=== PATIENT | female | born 1975 | race African-American/Black ===

== ENCOUNTER 2017-07-21 16:22 | Outpatient (CLI) | payer BC | END 2017-07-21 16:23 | disposition home or self-care (01) | LOC: BICMAMMO 16:22 | PROVIDERS: ATTEND Obstetrics & Gynecology | DX: Z12.31 Encounter for screening mammogram for malignant neoplasm of breast (principal); Z80.3 Family history of malignant neoplasm of breast | CPT/HCPCS: 77063; 77067 ==

== ENCOUNTER 2022-07-13 13:58 | Outpatient (CLI) | payer BC | END 2022-07-13 13:59 | disposition home or self-care (01) | LOC: BICCT 13:58 | PROVIDERS: ATTEND Family Medicine | DX: R42 Dizziness and giddiness (principal) | CPT/HCPCS: 70450 ==

== ENCOUNTER 2023-12-20 20:34 | Observation (INO) | payer BC ==
[2023-12-20 21:13] LABS: #Basophils Less than 0.03 10x3/uL (0.0-0.2); %Basophils 0.3 % (0.0-1.0); %Eosinophils 1.9 % (0.0-10.0); %Lymphocytes 44.5 % (21.0-51.0); %Monocytes 7.3 % (0.0-10.0); %Neutrophils 45.9 % (42.0-75.0); Hematocrit 43.4 % (36.0-47.0); Hemoglobin 14.4 g/dL (12.0-16.0); Mean Corpuscular HGB CONC 33.2 g/dL (32.0-36.0); Mean Corpuscular Hemoglobin 28.3 pg (27.0-31.0); Mean Corpuscular Volume 85.3 fL (78.0-98.0); Mean Platelet Volume 10.2 fL (7.4-10.4); Platelet Count 301 10x3/uL (130-400); RBC Distribution Width 13.1 % (11.5-14.5); Red Blood Cell (RBC) Count 5.09 mill/uL (4.20-5.40)
[2023-12-20 21:18] LABS: Bacteria/HPF None Seen HPF (None Seen); Bilirubin Negative (Negative); Blood, Urine Negative (Negative); CAUTI Indications for Culture Alt mental st,lethar; Clarity Clear (Clear); Glucose, Urine (Dipstick) 70 mg/dL (Negative); Ketone, Urine Negative (Negative); Leukocyte Negative Leu/uL (Negative); Nitrite Negative (Negative); Protein, Urine (Dipstick) Negative (Neg-Trace); RBC/HPF 0-3 HPF (0-3); Specific Gravity, Urine 1.022 (1.002-1.036); Squamous Epithelial 0-3 HPF (0-3); WBC/HPF None Seen HPF (0-3); pH, Urine 6.5 (5.0-9.0)
[2023-12-20 21:21] LABS: Urine Culture Reflex No No
[2023-12-20 21:28] LABS: ALT (SGPT) 16 U/L (8-55); AST (SGOT) 13 U/L (5-34); Albumin 3.9 g/dL (3.5-5.0); Alkaline Phosphatase 100 U/L (40-110); Anion Gap 18 mmol/L (10-20); BUN (Urea Nitrogen) 11 mg/dL (7.0-18.7); Bilirubin, Total 0.2 mg/dL (0.2-1.2); Calc. Creatinine Clearance 0 mL/min (70-130); Calcium 9.9 mg/dL (7.8-10.44); Carbon Dioxide 25 mmol/L (22-29); Chloride 101 mmol/L (98-107); Estimated GFR 67; Globulin 3.9 g/dL (2.4-3.5); Glucose 169 mg/dL (70-105); Potassium 3.5 mmol/L (3.5-5.1); Protein, Total 7.8 g/dL (6.0-8.3); Sodium 140 mmol/L (136-145)
[2023-12-20 21:35] LABS: Troponin I Less than 0.010 ng/mL (< 0.028)
[2023-12-20] MEDS ORDERED: Nitroglycerin 2% Ointment 1 INCH/1 GM Packet ONE (22:02)
[2023-12-20] MEDS ORDERED: Aspirin Chewable 81 MG TAB ONE (22:03)
[2023-12-20] MEDS ORDERED: Ondansetron PF 4 MG/2 ML Vial IVP PRN (22:31)
[2023-12-20] MEDS ORDERED: Acetaminophen 650 MG Suppository PR PRN (22:31)
[2023-12-20] MEDS ORDERED: Ondansetron ODT 4 MG TAB PO PRN (22:31)
[2023-12-20] MEDS ORDERED: Losartan 25 MG TAB PO SCH (23:00)
[2023-12-20 23:52] VITALS: BMI 31.2
[2023-12-21] MEDS ORDERED: Glucagon 1 MG/ML KIT IM PRN (00:19)
[2023-12-21] MEDS ORDERED: Dextrose 50% Abboject 50 ML SYRINGE SLOW IVP PRN (00:19)
[2023-12-21] MEDS ORDERED: Insulin Regular, Human 100 UNIT/ML 10 ML VIAL SC PRN ×2 (00:19)
[2023-12-21] MEDS ORDERED: Dextrose 5% in Water 1,000 ML IV PRN (00:19)
[2023-12-21 01:23] LABS: Troponin I Less than 0.010 ng/mL (< 0.028)
[2023-12-21 03:16] LABS: #Basophils 0.03 10x3/uL (0.0-0.2); %Basophils 0.5 % (0.0-1.0); %Eosinophils 1.6 % (0.0-10.0); %Lymphocytes 44.3 % (21.0-51.0); %Monocytes 7.1 % (0.0-10.0); %Neutrophils 46.3 % (42.0-75.0); Hematocrit 39.9 % (36.0-47.0); Hemoglobin 12.9 g/dL (12.0-16.0); Mean Corpuscular HGB CONC 32.3 g/dL (32.0-36.0); Mean Corpuscular Hemoglobin 28.4 pg (27.0-31.0); Mean Corpuscular Volume 87.9 fL (78.0-98.0); Mean Platelet Volume 9.8 fL (7.4-10.4); Platelet Count 255 10x3/uL (130-400); RBC Distribution Width 13.1 % (11.5-14.5); Red Blood Cell (RBC) Count 4.54 mill/uL (4.20-5.40)
[2023-12-21 03:37] LABS: Hemoglobin A1c 7.3 % (4.0-6.0)
[2023-12-21 03:40] LABS: Troponin I Less than 0.010 ng/mL (< 0.028)
[2023-12-21 03:45] LABS: Anion Gap 17 mmol/L (10-20); BUN (Urea Nitrogen) 11 mg/dL (7.0-18.7); Calc. Creatinine Clearance 129 mL/min (70-130); Calcium 9.2 mg/dL (7.8-10.44); Carbon Dioxide 20 mmol/L (22-29); Cardiac Risk 4.3 (Less than 4.5); Chloride 106 mmol/L (98-107); Cholesterol 163 mg/dl (< 200 Desired); Estimated GFR 87; Glucose 115 mg/dL (70-105); HDL Cholesterol 38 mg/dL (>60 Neg Risk); LDL Cholesterol, Calculated 110 mg/dL; Potassium 3.8 mmol/L (3.5-5.1); Sodium 139 mmol/L (136-145); Triglycerides 75 mg/dL (Less than 150)
[2023-12-21] MEDS ORDERED: Fioricet 325/50/40 mg Tablet ONE ×2 (05:34→11:05)
[2023-12-21] MEDS: Fioricet 325/50/40 mg Tablet PO PRN (05:35)
[2023-12-21] MEDS ORDERED: Famotidine 20 MG TAB ONE (10:54)
[2023-12-21] MEDS ORDERED: Aspirin 81 mg Enteric Coated Tablet ONE (10:54)
[2023-12-21] MEDS: Aspirin 81 mg Enteric Coated Tablet PO SCH (11:26)
[2023-12-21] MEDS: Famotidine 20 MG TAB PO SCH (11:27)
[2023-12-21] MEDS: Atorvastatin Calcium 40 MG TAB PO SCH (21:35)
[2023-12-22 04:24] LABS: #Basophils Less than 0.03 10x3/uL (0.0-0.2); %Basophils 0.2 % (0.0-1.0); %Eosinophils 2.2 % (0.0-10.0); %Lymphocytes 45.4 % (21.0-51.0); %Monocytes 9.4 % (0.0-10.0); %Neutrophils 42.6 % (42.0-75.0); Hematocrit 39.6 % (36.0-47.0); Hemoglobin 12.7 g/dL (12.0-16.0); Mean Corpuscular HGB CONC 32.1 g/dL (32.0-36.0); Mean Corpuscular Hemoglobin 27.3 pg (27.0-31.0); Mean Platelet Volume 10.3 fL (7.4-10.4); Platelet Count 253 10x3/uL (130-400); RBC Distribution Width 13.1 % (11.5-14.5); Red Blood Cell (RBC) Count 4.66 mill/uL (4.20-5.40)
[2023-12-22] MEDS: Acetaminophen 325 MG TAB PO PRN (04:30)
[2023-12-22 04:41] LABS: Anion Gap 10 mmol/L (10-20); BUN (Urea Nitrogen) 14 mg/dL (7.0-18.7); Calc. Creatinine Clearance 105 mL/min (70-130); Calcium 9.2 mg/dL (7.8-10.44); Carbon Dioxide 26 mmol/L (22-29); Chloride 105 mmol/L (98-107); Estimated GFR 68; Glucose 116 mg/dL (70-105); Magnesium 2.1 mg/dL (1.6-2.6); Potassium 3.7 mmol/L (3.5-5.1); Sodium 137 mmol/L (136-145)
[2023-12-22] MEDS: Hydrochlorothiazide 25 MG TAB PO SCH (09:30)
[2023-12-22] MEDS: Losartan 25 MG TAB PO SCH (09:30)
[2023-12-22] MEDS: metFORMIN 500 MG TAB PO SCH (09:31)
[2023-12-22] MEDS: Fioricet 325/50/40 mg Tablet PO PRN (11:10)
[2023-12-22 12:24] VITALS: BP 152/96; TEMP 97.8
[2023-12-22] MEDS ORDERED: Montelukast Sodium 10 mg Tablet PO SCH (21:00)
== END 2023-12-22 15:35 | disposition home or self-care (01) ==
LOC: ERS 20:34 → ERHOLD 22:43 → 2SE 12-21 16:22
PROVIDERS: ADMIT Student in an Organized Health Care Education/Training Program; ATTEND Internal Medicine
PROC: B246ZZZ Ultrasonography of Right and Left Heart (ICD-10-PCS; principal; 2023-12-22)
DX: R51.9 Headache, unspecified (principal); R47.81 Slurred speech; H53.8 Other visual disturbances; M79.622 Pain in left upper arm; I08.9 Rheumatic multiple valve disease, unspecified; I16.0 Hypertensive urgency; I10 Essential (primary) hypertension; E11.9 Type 2 diabetes mellitus without complications; Z79.84 Long term (current) use of oral hypoglycemic drugs; Z79.899 Other long term (current) drug therapy
CPT/HCPCS: 36415; 36416; 70450; 70551; 71045; 80048; 80053; 80061; 81001; 83036; 83605; 83735; 83880; 84443; 84484; 85025; 93005; 93306; 93880; G0378